=== PATIENT | female | born 1975 | race African-American/Black ===

== ENCOUNTER 2022-04-27 07:43 | Inpatient (IN) | payer BC ==
[2022-04-27] MEDS ORDERED: SODIUM CHLORIDE 0.9% 1,000 ML IV ONE (08:13)
[2022-04-27] MEDS ORDERED: ALPRAZolam 0.25 MG TAB PO PRN (08:34)
[2022-04-27] MEDS ORDERED: NITROGLYCERIN SL TABS 0.4 MG TAB SUBLINGUAL PRN ×2 (08:34→13:05)
[2022-04-27] MEDS ORDERED: ASPIRIN 325 MG TAB PO STA (08:34)
[2022-04-27] MEDS ORDERED: ALPRAZolam 0.5 MG TAB PO PRN (08:34)
[2022-04-27] MEDS ORDERED: ASPIRIN 81 MG ONE (09:03)
[2022-04-27 09:12] LABS: Glucose,Whole Blood 96 mg/dL (70-110)
[2022-04-27] MEDS ORDERED: fentaNYL (PF) 50 MCG/ML 2 ML AMP ONE (11:53)
[2022-04-27] MEDS ORDERED: PRASUGREL 10 MG TAB ONE (12:00)
[2022-04-27] MEDS ORDERED: HEPARIN SODIUM 1,000 UN/ML (10ML VL) ONE (12:00)
[2022-04-27] MEDS ORDERED: HEPARIN SODIUM 1,000 UN/ML (10ML VL) IV ONE ×4 (12:04→12:30)
[2022-04-27] MEDS ORDERED: PRASUGREL 10 MG TAB PO ONE (12:05)
[2022-04-27] MEDS ORDERED: fentaNYL (PF) 50 MCG/1 ML VIAL IVP ONE (12:05)
[2022-04-27] MEDS ORDERED: LIDOCAINE 1% INJ 10MG/ML (20 ML MDV) SQ ONE (12:07)
[2022-04-27] MEDS ORDERED: NITROGLYCERIN 1000MCG/10ML SYRINGE INTRACORON ONE (12:45)
[2022-04-27] MEDS ORDERED: IOPAMIDOL-370 125ML BTL INJ ONE (12:55)
[2022-04-27] MEDS ORDERED: MAG HYDROX/AL HYDROX/SIMETH 30 ML CUP PO PRN (13:05)
[2022-04-27] MEDS ORDERED: ZOLPIDEM 5 MG TAB PO PRN (13:05)
[2022-04-27] MEDS ORDERED: ATROPINE SULFATE 0.1 MG/ML 10ML SYRINGE IV PRN (13:05)
[2022-04-27] MEDS ORDERED: RX INFO: IV CONTRAST WAS GIVEN 1 EACH MISC MISCELLANE PRN (13:05)
--- NOTE | 2022-04-27 13:14 | P.CARDCATH ---
Date of Procedure: 04/27/22 Description of Procedure: PERCUTANEOUS TRANSLUMINAL CORONARY ANGIOPLASTY CLINICAL INFORMATION: The patient is a 46-year-old female with known history of hypertension, hyperlipidemia and diabetes who presented to [facility] with symptoms of chest discomfort and no evidence of myocardial infarction. She had prior stenting of the LAD in 2012 in 2019. She had an abnormal MPI. She underwent cardiac catheterization that showed critical stenosis involving the RCA with moderate to severe stenosis in the stented segment of the LAD. Recommendations were made regarding angioplasty and stenting. The procedure as well as the risks and the complications were discussed with the patient who was in full understanding and agreement. PROCEDURE: Using the guidewire exchange technique the 6-Surinamese sheath in the right femoral artery was exchanged to a new 6-Surinamese sheath. A 6 Surinamese 0.75 AL guiding catheter was introduced into the system. After cannulating the right coronary ostium, a 0.014 BMW J-wire was advanced across the lesion and positioned distally. Following that a 2.5 x 12 Treck balloon was advanced and inflated at 8 atmosphere. Following that a 3.25 x 18 mm Xience candido point stent was deployed. It was dilated at 14. Following that and after removing the balloon at 3.0 x 28 mm Xience candido point stent was positioned in the mid distal segment and dilated to 16 isidra. After the last inflation, after appropriate wait, the balloon and the guidewire were withdrawn back into the guiding catheter. Images were obtained and repeated. Those images reveal stable successful stenting. At that point, the guiding catheter, the balloon, and guidewire were removed. Subsequently a 3.75 EBU guiding catheter was introduced and the left main was cannulated. An Omni Doppler flow wire was positioned in the distal LAD. IFR was measured at 0.94. Subsequently the wire and the guiding catheter were removed. The sheath was removed. Hemostasis was obtained with deployment of an Angio-Seal. There were no immediate complications. The patient was returned to the room in stable condition. Of note, the patient received 12,000 units of heparin as well as a few. The ACT was followed. There was no immediate complications. The patient had no chest discomfort but had EKG changes. RESULTS: Successful stenting of the proximal RCA with reduction of stenosis from 95 % to 0% Successful stenting of the mid-distal RCA with reduction of stenosis from 80% to 0% Nonhemodynamically significant lesion in the proximal stented LAD with IFR of 0.94 RECOMMENDATIONS: The patient will be continued on dual antiplatelet treatment with aspirin and Effient for 6 months in addition to aggressive coronary risks modification. The findings and recommendations were discussed with the patient and the family, they are in full understanding and agreement. Duration of sedation: 55 minutes
[2022-04-27] MEDS ORDERED: SODIUM CHLORIDE 0.9% 1,000 ML in EMPTY BAG 1 BAG IV SCH (13:15)
[2022-04-27 13:38] VITALS: BMI 47.1
[2022-04-27] MEDS: carvediloL 12.5 MG TAB PO SCH (17:17)
[2022-04-27] MEDS: SODIUM CHLORIDE 0.9% 1,000 ML in EMPTY BAG 1 BAG IV SCH ×3 (20:57→21:02)
[2022-04-27] MEDS ORDERED: amLODIPine 5 MG TAB PO SCH (21:00)
[2022-04-27] MEDS ORDERED: ATORVASTATIN 80 MG TAB PO SCH (21:00)
[2022-04-27] MEDS: RANOLAZINE 500 MG TAB.ER.12H PO SCH (21:01)
[2022-04-27] MEDS: PREGABALIN 75 MG CAP PO SCH (21:01)
[2022-04-27] MEDS: DULoxetine HCL 30 MG CAPSULE.DR PO SCH (21:01)
[2022-04-27] MEDS: glipiZIDE 5 MG TAB PO SCH (21:01)
[2022-04-28 05:39] VITALS: RESP 18
[2022-04-28] MEDS: SODIUM CHLORIDE 0.9% 1,000 ML in EMPTY BAG 1 BAG IV SCH (05:40)
[2022-04-28 06:01] LABS: Glucose,Whole Blood 95 mg/dL (70-110)
[2022-04-28] MEDS: carvediloL 12.5 MG TAB PO SCH (06:30)
[2022-04-28] MEDS ORDERED: PANTOPRAZOLE 40 MG TABLET PO SCH (07:30)
[2022-04-28] MEDS: RANOLAZINE 500 MG TAB.ER.12H PO SCH (08:29)
[2022-04-28] MEDS: DULoxetine HCL 30 MG CAPSULE.DR PO SCH (08:29)
[2022-04-28] MEDS: PREGABALIN 75 MG CAP PO SCH (08:29)
[2022-04-28] MEDS: glipiZIDE 5 MG TAB PO SCH (08:29)
[2022-04-28 08:30] LABS: African American GFR (CKD) >90 (>60 ml/min/1.73 sqM); Anion Gap 6 mmol/L; Blood Urea Nitrogen 5 mg/dL (7-17); Calcium 8.8 mg/dL (8.4-10.2); Carbon Dioxide 28 mmol/L (22-30); Chloride 104 mmol/L (98-107); Glucose 89 mg/dL (74-99); Non-African American GFR(CKD) >90 (>60 ml/min/1.73 sqM); Potassium 3.8 mmol/L (3.5-5.1); Sodium 138 mmol/L (137-145)
[2022-04-28] MEDS ORDERED: ASPIRIN 81 MG PO SCH (09:00)
[2022-04-28] MEDS ORDERED: PRASUGREL 10 MG TAB PO SCH (09:00)
[2022-04-28 10:47] VITALS: TEMP 97.5
[2022-04-28 11:57] VITALS: BP 120/80; PULSE 70
--- NOTE | 2022-04-28 21:42 | DS ---
DISCHARGE SUMMARY CHIEF COMPLAINT: Chest pain and coronary artery disease. HISTORY OF PRESENT ILLNESS AND PHYSICAL EXAMINATION: Details of this lady's history and physical can be found in the initial workup. LABORATORY STUDIES: While she was in the hospital, she had laboratory studies, details of which can be found in the laboratory section of her chart. COURSE IN THE HOSPITAL: After admission, she was placed on bedrest and started on intravenous fluids and taken to the director of cardiac cath lab. Two stents were placed. Postoperatively, she did well. It was felt that she could go home on the . She will follow up with Cardiology and my office. FINAL DIAGNOSES: 1. Unstable angina pectoris. 2. Coronary artery disease. 3. Morbid obesity. OPERATIONS: Cardiac catheterization and stent placement. CONSULTATIONS: Cardiology. CONDITION: She is improved. DORYS / THOM: [id number] /
--- NOTE | 2022-04-29 00:18 | HP ---
HISTORY AND PHYSICAL CHIEF COMPLAINT: Chest pain. HISTORY OF PRESENT ILLNESS: This is another admission for this 46-year-old -[place] female who was admitted to [facility] with chest pain. She has a longstanding history of coronary artery disease. Apparently, studies at [facility] indicated that she should undergo cardiac cath and she was transferred to this hospital. REVIEW OF SYSTEMS: At present time, she is still having some discomfort. She is having no difficulty with headaches, shortness of breath, cough, hemoptysis, abdominal pain, nausea, vomiting, etc. Past medical history, family history and personal and social histories can all be found in her prior hospital records and those accompanying her from [facility]. PHYSICAL EXAMINATION: VITAL SIGNS: Blood pressure 132/88 with a pulse of 83 and regular, respirations of 32, and she is afebrile. GENERAL: She appeared to be obese, in no acute distress. SKIN: Dry. HEENT: Head, ears, eyes, nose, mouth and throat are normal. CHEST: Clear. CARDIAC: Normal in sinus rhythm. ABDOMEN: Protuberant, soft, and nontender. EXTREMITIES: Normal. NEUROLOGICAL: She is intact. DIAGNOSES: She is admitted to the hospital with diagnoses, 1. Unstable angina pectoris. 2. Coronary artery disease. PLAN: Consult Cardiology and they are planning on taking her to the laboratory engineer. DORYS / THOM: [id number] /
== END 2022-04-28 14:46 | disposition home or self-care (01) | DRG 247 ==
LOC: 3SCARD 07:59
PROVIDERS: ADMIT Family Medicine; ATTEND Family Medicine
PROC: 027035Z Dilation of Coronary Artery, One Artery with Two Drug-eluting Intraluminal Devices, Percutaneous Approach (ICD-10-PCS; principal; 2022-04-28)
PROC: 4A023N7 Measurement of Cardiac Sampling and Pressure, Left Heart, Percutaneous Approach (ICD-10-PCS; 2022-04-28)
PROC: B2111ZZ Fluoroscopy of Multiple Coronary Arteries using Low Osmolar Contrast (ICD-10-PCS; 2022-04-28)
DX: I25.110 Atherosclerotic heart disease of native coronary artery with unstable angina pectoris (principal); Z68.42 Body mass index [BMI] 45.0-49.9, adult; E11.9 Type 2 diabetes mellitus without complications; E66.01 Morbid (severe) obesity due to excess calories; I10 Essential (primary) hypertension; E78.5 Hyperlipidemia, unspecified; Z28.311 Partially vaccinated for COVID-19; Z79.82 Long term (current) use of aspirin; Z79.84 Long term (current) use of oral hypoglycemic drugs; Z79.899 Other long term (current) drug therapy
CPT/HCPCS: 80048; 83036; 93799; 94760

== ENCOUNTER 2022-08-24 16:14 | Inpatient (IN) | payer BC ==
[2022-08-24 17:07] LABS: Basophils % (A) 0 %; Eosinophils # (A) 0.1 k/uL (0-0.7); Eosinophils % (A) 2 %; HCT 38.8 % (34.0-46.0); HGB 12.8 gm/dL (11.4-16.0); Lymphocytes # (A) 2.1 k/uL (1.0-4.8); Lymphocytes % (A) 31 %; MCV 88.1 fL (80.0-100.0); Mean Platelet Volume 8.1; Monocytes # (A) 0.4 k/uL (0-1.0); Monocytes % (A) 6 %; Neutrophils # (A) 4.1 k/uL (1.3-7.7); Neutrophils % (A) 60 %; Platelet Count 260 k/uL (150-450); RDW 13.2 % (11.5-15.5); WBC 6.9 k/uL (3.8-10.6)
--- NOTE | 2022-08-24 17:10 | XR ---
EXAMINATION TYPE: XR chest 2V DATE OF EXAM: 08/24/2022 5:04 PM COMPARISON: None TECHNIQUE: XR chest 2V Frontal and lateral views of the chest. CLINICAL INDICATION:Female, 46 years old with history of Chest Pain; FINDINGS: Lungs/Pleura: There is no evidence of pleural effusion, focal consolidation, or pneumothorax. Pulmonary vascularity: Unremarkable. Heart/mediastinum: Cardiomediastinal silhouette is unremarkable. Musculoskeletal: No acute osseous pathology. IMPRESSION: No acute cardiopulmonary disease/process.
[2022-08-24 17:30] LABS: ALT 19 U/L (4-34); AST 22 U/L (14-36); African American GFR (CKD) >90 (>60 ml/min/1.73 sqM); Albumin 3.8 g/dL (3.5-5.0); Alkaline Phosphatase 136 U/L (38-126); Anion Gap 7 mmol/L; Blood Urea Nitrogen 8 mg/dL (7-17); Carbon Dioxide 26 mmol/L (22-30); Chloride 104 mmol/L (98-107); Glucose 111 mg/dL (74-99); Magnesium 1.7 mg/dL (1.6-2.3); Non-African American GFR(CKD) >90 (>60 ml/min/1.73 sqM); Potassium 3.7 mmol/L (3.5-5.1); Sodium 137 mmol/L (137-145); Total Bilirubin 0.6 mg/dL (0.2-1.3); Total Protein 7.3 g/dL (6.3-8.2)
[2022-08-24] MEDS ORDERED: NITROGLYCERIN OINT 1 INCH/GM PACKET TOPICAL STA (19:25)
[2022-08-24] MEDS ORDERED: ASPIRIN 81 MG PO STA (19:25)
--- NOTE | 2022-08-24 19:30 | ED ---
General Adult HPI - General Chief complaint: Chest Pain Stated complaint: Chest Pain,Sob Time Seen by Provider: 08/24/22 19:25 Source: patient, RN notes reviewed, old records reviewed Mode of arrival: ambulatory Limitations: no limitations - History of Present Illness Initial comments: This is a 46-year-old female with a past medical history significant for multiple stents in her heart diabetes high blood pressure and high cholesterol. Patient states she quit smoking 2 years ago. Patient comes in today stating that she's been having intermittent chest pain since Monday much worse on Monday through today currently is not as bad as it has been but is still there. Patient states the pain radiates into her arm and into her back. Patient states it also makes her short of breath. Patient states she supposed to be scheduled for a cardiac cath in about a week but she can't stand the pain anymore so she decided come in. Patient denies any fever chills or cough per patient denies lightheadedness or dizziness. Patient denies any syncopal or near syncopal episode. Patient denies any abdominal pain patient denies nausea vomiting or diarrhea. Patient denies any swelling to the legs or calf tenderness - Related Data Home Medications Medication Instructions Recorded Confirmed Aspirin 81 mg PO DAILY 04/27/22 04/27/22 DULoxetine HCL [Cymbalta] 30 mg PO BID 04/27/22 04/27/22 Furosemide [Lasix] 40 mg PO DAILY 04/27/22 04/27/22 Isosorbide Mononitrate ER [Imdur] 30 mg PO HS 04/27/22 04/27/22 Pantoprazole [Protonix] 40 mg PO DAILY 04/27/22 04/27/22 Pregabalin [Lyrica] 150 mg PO BID 04/27/22 04/27/22 Ranolazine [Ranexa] 500 mg PO BID 04/27/22 04/27/22 amLODIPine [Norvasc] 5 mg PO HS 04/27/22 04/27/22 carvediloL [Coreg] 25 mg PO BID-W/MEALS 04/27/22 04/27/22 glipiZIDE 5 mg PO HS 04/27/22 04/27/22 hydrOXYzine pamoate [Vistaril] 50 mg PO HS 04/27/22 04/27/22 tiZANidine [Zanaflex] 2 mg PO HS PRN 04/27/22 04/27/22 Previous Rx's Medication Instructions Recorded Atorvastatin [Lipitor] 80 mg PO HS #30 tab 04/28/22 Nitroglycerin Sl Tabs [Nitrostat] 0.4 mg SUBLINGUAL Q5M PRN #25 tab 04/28/22 Prasugrel [Effient] 10 mg PO DAILY #90 tab 04/28/22 Allergies Allergy/AdvReac Type Severity Reaction Status Date / Time No Known Allergies Allergy Verified 08/24/22 16:21 Review of Systems ROS Statement: Those systems with pertinent positive or pertinent negative responses have been documented in the HPI. ROS Other: All systems not noted in ROS Statement are negative. Past Medical History Past Medical History: Coronary Artery Disease (CAD), Chest Pain / Angina, Diabetes Mellitus, Fibromyalgia, GERD/Reflux, Hyperlipidemia, Hypertension History of Any Multi-Drug Resistant Organisms: None Reported Past Surgical History: Heart Catheterization With Stent, Hysterectomy Additional Past Surgical History / Comment(s): bunion surgery, gastric sleeve 2021 Past Anesthesia/Blood Transfusion Reactions: No Reported Reaction Date of Last Stent Placement:: 04/27/2022 Past Psychological History: Anxiety, Depression, PTSD Smoking Status: Former smoker Past Alcohol Use History: Occasional Past Drug Use History: Marijuana - Past Family History Mother Family Medical History: Coronary Artery Disease (CAD), CVA/TIA, Hyperlipidemia, Hypertension, Myocardial Infarction (MA), Seizure Disorder Father Family Medical History: Coronary Artery Disease (CAD) General Exam - General Exam Comments Initial Comments: GENERAL: Patient is well-developed and well-nourished. Patient is nontoxic and well- hydrated and is in mild distress. ENT: Neck is soft and supple. No significant lymphadenopathy is noted. Oropharynx is clear. Moist mucous membranes. Neck has full range of motion without eliciting any pain. EYES: The sclera were anicteric and conjunctiva were pink and moist. Extraocular movements were intact and pupils were equal round and reactive to light. Eyelids were unremarkable. PULMONARY: Unlabored respirations. Good breath sounds bilaterally. No audible rales rhonchi or wheezing was noted. CARDIOVASCULAR: There is a regular rate and rhythm without any murmurs gallops or rubs. ABDOMEN: Soft and nontender with normal bowel sounds. SKIN: Skin is clear with no lesions or rashes and otherwise unremarkable. NEUROLOGIC: Patient is alert and oriented x3. Cranial nerves II through XII are grossly intact. Motor and sensory are also intact. Normal speech, volume and content. Symmetrical smile. MUSCULOSKELETAL: Normal extremities with adequate strength and full range of motion. No lower extremity swelling or edema. No calf tenderness. LYMPHATICS: No significant lymphadenopathy is noted PSYCHIATRIC: Normal psychiatric evaluation. Limitations: no limitations Course Vital Signs 08/24/22 16:18 Temperature 98.5 F Pulse Rate 80 Respiratory 20 Rate Blood Pressure 117/80 O2 Sat by Pulse 98 Oximetry Medical Decision Making - Medical Decision Making EKG was interpreted by myself shows a sinus rhythm at 84 bpm urine it was on a 51 QRSs 85 Q-T intervals 31 QTC is 422. Patient's EKG shows no ST segment elevation or depression. Patient has inverted T waves in 3 and aVF. Was pt. sent in by a medical professional or institution (, [facility], SKI TECHNICIAN, urgent care, hospital, or detention...) When possible be specific @ -[No] Did you speak to anyone other than the patient for history (EMS, parent, family, police, friend...)? What history was obtained from this source @ -[No] Did you review nursing and triage notes (agree or disagree)? Why? @ -[I reviewed and agree with nursing and triage notes] Were old charts reviewed (outside hosp., previous admission, EMS record, old EKG, old radiological studies, urgent care reports/EKG's, detention records)? Report findings @ -Prior charts prior lab work revealed reviewed Differential Diagnosis (chest pain, altered mental status, abdominal pain women, abdominal pain men, vaginal bleeding, weakness, fever, dyspnea, syncope, headach e, dizziness, GI bleed, back pain, seizure, CVA, palpatations, mental health, musculoskeletal)? @ -Differential Chest Pain: Stable Angina, Unstable Angina, STEMI, NSTEMI Aortic Dissection, Pneumothorax, Musculoskeletal, Esophageal Spasm GERD, Cholecystitis, Pancreatitis, Zoster, this is not meant to be an all-inclusive list. EKG interpreted by me (3pts min.). @ -[As above] X-rays interpreted by me (1pt min.). @ -Chest x-ray shows no acute abnormality CT interpreted by me (1pt min.). @ -[None done] U/S interpreted by me (1pt. min.). @ -[None done] What testing was considered but not performed or refused? (CT, X-rays, U/S, labs)? Why? @ -[None] What meds were considered but not given or refused? Why? @ -[None] Did you discuss the management of the patient with other professionals (professionals i.e. , PA, SKI TECHNICIAN, lab, RT, psych nurse, community mental health social worker, orchestra musician, teacher, chief risk officer, case management coordinator)? Give summary @ -Spoke to [facility] hospitalist who agreed to admit the patient a dmitted the patient I consulted cardiology Was smoking cessation discussed for >3mins.? @ -[No] Was critical care preformed (if so, how long)? @ -[No] Were there social determinants of health that impacted care today? How? (Homelessness, low income, unemployed, alcoholism, drug addiction, transportation, low edu. Level, literacy, decrease access to med. care, alf, rehab)? @ -[No] Was there de-escalation of care discussed even if they declined (Discuss DNR or withdrawal of care, Hospice)? DNR status @ -[No] What co-morbidities impacted this encounter? (DM, HTN, Smoking, COPD, CAD, Cancer, CVA, ARF, Chemo, Hep., AIDS, mental health diagnosis, sleep apnea, morbid obesity)? @ -[None] Was patient admitted / discharged? Hospital course, mention meds given and route, prescriptions, significant lab abnormalities, going to OR and other pertinent info. @ -Patient's chest pain was somewhat relieved with the nitro paste but wasn't completely gone but she had 2 troponins done in the emergency department both of which were negative. Patient was admitted because she was told to be getting a stent less than a week and this point time since she's had pain since Monday thought it best to get in the cardiac catheterization and stenting earlier than later I spoke with the [facility] stay agreed to admit the patient admitted the patient and wrote admitting orders Undiagnosed new problem with uncertain prognosis? @ -[No] Drug Therapy requiring intensive monitoring for toxicity (Heparin, Nitro, Insuli n, Cardizem)? @ -[No] Were any procedures done? @ -[No] Diagnosis/symptom? @ -Chest pain Acute, or Chronic, or Acute on Chronic? @ -Acute Uncomplicated (without systemic symptoms) or Complicated (systemic symptoms)? @ -Complicated Side effects of treatment? @ -[No] Exacerbation, Progression, or Severe Exacerbation? @ -[No] Poses a threat to life or bodily function? How? (Chest pain, USA, MA, pneumonia, PE, COPD, DKA, ARF, appy, cholecystitis, CVA, Diverticulitis, Homicidal, Suicidal, threat to staff... and all critical care pts) @ -Yes this could lead to potential MA and - Lab Data Result diagrams: 08/24/22 16:42 08/24/22 19:57 Lab Results 08/24/22 08/24/22 08/24/22 Range/Units 16:42 16:42 16:42 WBC 6.9 (3.8-10.6) k/uL RBC 4.40 (3.80-5.40) m/uL Hgb 12.8 (11.4-16.0) gm/dL Hct 38.8 (34.0-46.0) % MCV 88.1 (80.0-100.0) fL MCH 29.0 (25.0-35.0) pg MCHC 33.0 (31.0-37.0) g/dL RDW 13.2 (11.5-15.5) % Plt Count 260 (150-450) k/uL MPV 8.1 Neutrophils % 60 % Lymphocytes % 31 % Monocytes % 6 % Eosinophils % 2 % Basophils % 0 % Neutrophils # 4.1 (1.3-7.7) k/uL Lymphocytes # 2.1 (1.0-4.8) k/uL Monocytes # 0.4 (0-1.0) k/uL Eosinophils # 0.1 (0-0.7) k/uL Basophils # 0.0 (0-0.2) k/uL PT (9.0-12.0) sec INR (<1.2) APTT (22.0-30.0) sec Sodium 137 (137-145) mmol/L Potassium 3.7 (3.5-5.1) mmol/L Chloride 104 (98-107) mmol/L Carbon Dioxide 26 (22-30) mmol/L Anion Gap 7 mmol/L BUN 8 (7-17) mg/dL Creatinine 0.69 (0.52-1.04) mg/dL Est GFR (CKD-EPI)AfAm >90 (>60 ml/min/1.73 sqM) Est GFR (CKD-EPI)NonAf >90 (>60 ml/min/1.73 sqM) Glucose 111 H (74-99) mg/dL Calcium 9.0 (8.4-10.2) mg/dL Magnesium 1.7 (1.6-2.3) mg/dL Total Bilirubin 0.6 (0.2-1.3) mg/dL AST 22 (14-36) U/L ALT 19 (4-34) U/L Alkaline Phosphatase 136 H (38-126) U/L Troponin I <0.012 (0.000-0.034) ng/mL NT-Pro-B Natriuret Pep pg/mL Total Protein 7.3 (6.3-8.2) g/dL Albumin 3.8 (3.5-5.0) g/dL 08/24/22 08/24/22 08/24/22 Range/Units 16:42 19:57 19:57 WBC (3.8-10.6) k/uL RBC (3.80-5.40) m/uL Hgb (11.4-16.0) gm/dL Hct (34.0-46.0) % MCV (80.0-100.0) fL MCH (25.0-35.0) pg MCHC (31.0-37.0) g/dL RDW (11.5-15.5) % Plt Count (150-450) k/uL MPV Neutrophils % % Lymphocytes % % Monocytes % % Eosinophils % % Basophils % % Neutrophils # (1.3-7.7) k/uL Lymphocytes # (1.0-4.8) k/uL Monocytes # (0-1.0) k/uL Eosinophils # (0-0.7) k/uL Basophils # (0-0.2) k/uL PT 10.6 (9.0-12.0) sec INR 1.0 (<1.2) APTT 22.0 (22.0-30.0) sec Sodium 138 (137-145) mmol/L Potassium 4.1 (3.5-5.1) mmol/L Chloride 104 (98-107) mmol/L Carbon Dioxide 27 (22-30) mmol/L Anion Gap 7 mmol/L BUN 8 (7-17) mg/dL Creatinine 0.69 (0.52-1.04) mg/dL Est GFR (CKD-EPI)AfAm >90 (>60 ml/min/1.73 sqM) Est GFR (CKD-EPI)NonAf >90 (>60 ml/min/1.73 sqM) Glucose 96 (74-99) mg/dL Calcium 9.4 (8.4-10.2) mg/dL Magnesium 1.8 (1.6-2.3) mg/dL Total Bilirubin 0.9 (0.2-1.3) mg/dL AST 27 (14-36) U/L ALT 21 (4-34) U/L Alkaline Phosphatase 153 H (38-126) U/L Troponin I (0.000-0.034) ng/mL NT-Pro-B Natriuret Pep 29 pg/mL Total Protein 8.4 H (6.3-8.2) g/dL Albumin 4.4 (3.5-5.0) g/dL 08/24/22 Range/Units 19:57 WBC (3.8-10.6) k/uL RBC (3.80-5.40) m/uL Hgb (11.4-16.0) gm/dL Hct (34.0-46.0) % MCV (80.0-100.0) fL MCH (25.0-35.0) pg MCHC (31.0-37.0) g/dL RDW (11.5-15.5) % Plt Count (150-450) k/uL MPV Neutrophils % % Lymphocytes % % Monocytes % % Eosinophils % % Basophils % % Neutrophils # (1.3-7.7) k/uL Lymphocytes # (1.0-4.8) k/uL Monocytes # (0-1.0) k/uL Eosinophils # (0-0.7) k/uL Basophils # (0-0.2) k/uL PT (9.0-12.0) sec INR (<1.2) APTT (22.0-30.0) sec Sodium (137-145) mmol/L Potassium (3.5-5.1) mmol/L Chloride (98-107) mmol/L Carbon Dioxide (22-30) mmol/L Anion Gap mmol/L BUN (7-17) mg/dL Creatinine (0.52-1.04) mg/dL Est GFR (CKD-EPI)AfAm (>60 ml/min/1.73 sqM) Est GFR (CKD-EPI)NonAf (>60 ml/min/1.73 sqM) Glucose (74-99) mg/dL Calcium (8.4-10.2) mg/dL Magnesium (1.6-2.3) mg/dL Total Bilirubin (0.2-1.3) mg/dL AST (14-36) U/L ALT (4-34) U/L Alkaline Phosphatase (38-126) U/L Troponin I <0.012 (0.000-0.034) ng/mL NT-Pro-B Natriuret Pep pg/mL Total Protein (6.3-8.2) g/dL Albumin (3.5-5.0) g/dL Disposition Clinical Impression: Chest pain Disposition: ADMITTED IP TO THIS HOSP Referrals: Andrew Galdamez MD [Primary Care Provider] - 1-2 days Time of Disposition: 21:05
[2022-08-24 20:14] LABS: Prothrombin Time 10.6 sec (9.0-12.0)
[2022-08-24 20:23] LABS: ALT 21 U/L (4-34); AST 27 U/L (14-36); African American GFR (CKD) >90 (>60 ml/min/1.73 sqM); Albumin 4.4 g/dL (3.5-5.0); Alkaline Phosphatase 153 U/L (38-126); Anion Gap 7 mmol/L; Blood Urea Nitrogen 8 mg/dL (7-17); Calcium 9.4 mg/dL (8.4-10.2); Carbon Dioxide 27 mmol/L (22-30); Chloride 104 mmol/L (98-107); Magnesium 1.8 mg/dL (1.6-2.3); Non-African American GFR(CKD) >90 (>60 ml/min/1.73 sqM); Potassium 4.1 mmol/L (3.5-5.1); Sodium 138 mmol/L (137-145); Total Bilirubin 0.9 mg/dL (0.2-1.3); Total Protein 8.4 g/dL (6.3-8.2)
[2022-08-24 20:24] LABS: Glucose 96 mg/dL (74-99)
[2022-08-24] MEDS ORDERED: NITROGLYCERIN SL TABS 0.4 MG TAB SUBLINGUAL PRN (21:05)
[2022-08-24] MEDS: NITROGLYCERIN OINT 1 INCH/GM PACKET TOPICAL SCH (23:12)
[2022-08-25] MEDS: NITROGLYCERIN OINT 1 INCH/GM PACKET TOPICAL SCH (05:46)
[2022-08-25] MEDS ORDERED: DEXTROSE 50% SYRINGE 50 ML IVP PRN ×2 (06:17)
[2022-08-25] MEDS ORDERED: NITROGLYCERIN SL TABS 0.4 MG TAB SUBLINGUAL PRN ×2 (06:18→07:59)
[2022-08-25] MEDS ORDERED: ALBUTEROL NEBULIZED 2.5 MG/3 ML INHALATION PRN (06:18)
[2022-08-25] MEDS ORDERED: tiZANidine 4 MG TAB PO PRN (06:18)
[2022-08-25 06:52] LABS: Glucose,Whole Blood 126 mg/dL (70-110)
[2022-08-25] MEDS: INSULIN ASPART (NovoLOG) 100 UNIT/ML VIAL SQ SCH ×4 (06:53→20:43)
[2022-08-25] MEDS: carvediloL 12.5 MG TAB PO SCH ×2 (06:57→18:22)
[2022-08-25] MEDS: PANTOPRAZOLE 40 MG TABLET PO SCH ×2 (06:57→18:22)
[2022-08-25] MEDS ORDERED: HEPARIN SODIUM,PORCINE 10,000 UNIT in SODIUM CHLORIDE 0.9% 1,000 ML IRRIGATION PRN (07:00)
[2022-08-25] MEDS ORDERED: HEPARIN SODIUM,PORCINE 2,500 UNIT in SODIUM CHLORIDE 0.9% 250 ML IRRIGATION PRN (07:00)
[2022-08-25] MEDS ORDERED: ALPRAZolam 0.25 MG TAB PO PRN (07:59)
[2022-08-25] MEDS ORDERED: ALPRAZolam 0.5 MG TAB PO PRN (07:59)
[2022-08-25] MEDS ORDERED: ATORVASTATIN 80 MG TAB PO STA (07:59)
[2022-08-25] MEDS ORDERED: ASPIRIN 325 MG TAB PO STA (07:59)
[2022-08-25 08:58] LABS: Chol/HDL Ratio 3.05 Ratio; LDL Cholesterol,Calculated 98.9 mg/dL (0.0-131.0); VLDL Calculation 18.78 mg/dL (5.00-40.00)
[2022-08-25] MEDS ORDERED: ASPIRIN 325 MG TAB PO SCH (09:00)
[2022-08-25] MEDS: glipiZIDE 5 MG TAB PO SCH ×2 (09:38→20:52)
[2022-08-25] MEDS: FUROSEMIDE 40 MG TAB PO SCH (09:41)
[2022-08-25] MEDS: CLOPIDOGREL 75 MG TAB PO SCH (10:25)
[2022-08-25] MEDS: FLUoxetine HCL 10 MG CAP PO SCH (10:25)
[2022-08-25] MEDS: RANOLAZINE 500 MG TAB.ER.12H PO SCH ×2 (10:26→20:10)
[2022-08-25] MEDS: PREGABALIN 100 MG CAP PO SCH ×2 (10:27→20:09)
[2022-08-25 11:33] LABS: Glucose,Whole Blood 134 mg/dL (70-110)
--- NOTE | 2022-08-25 13:01 | P.CRDCN ---
History of Present Illness Consult date: 08/25/22 History of present illness: History of present illness: This is a 46-year-old female patient of Dr. Dockery with coronary artery disease status post stent, diabetes mellitus type 2, hypertension, hyperlipidemia, family history of CAD at less than 60 years of age, tobacco use. We have been asked to evaluate the patient for chest pain. Patient was last seen in the [facility] on 07/14/2022 at which time she was complaining of chest discomfort on and off and worsened with physical activity. Physical activity Limited due to fibromyalgia. Patient was scheduled for left heart catheterization and Imdur was increased to 60 mg daily. Patient presents with continued concern for chest pain. Pain radiates to her arm and into her back with shortness of breath. She felt the pain was getting worse and decided to come into the hospital for evaluation. EKG sinus rhythm Chest x-ray: No acute findings CBC is unremarkable. Electrolytes and renal function normal. Troponins n egative 3. Triglycerides 93, cholesterol 175, LDL 98, HDL 57. Magnesium 1.8. Alkaline phosphatase 153 otherwise liver function tests are normal. Home cardiac medications: Amlodipine 5 mg at bedtime, aspirin 81 mg daily, atorvastatin 80 mg at bedtime, Coreg 25 mg twice daily, Plavix 75 mg daily, Lasix 40 mg daily, Imdur 60 mg at bedtime, Nitrostat as needed, Ranexa 500 mg twice daily. Cardiac catheterization 04/2022 revealed critical stenosis involving RCA and moderate to severe stenosis in the stented segment of the LAD. Patient underwent proximal RCA stent, mid distal RCA. Proximal stented LAD with INR of 0.94. Patient also had previous stenting of the LAD in 2011 and 2018. Cardiolite stress test 06/24/2022 revealed nondiagnostic electrocardiographic stress testing. Abnormal myocardial perfusion imaging with reversible anterior, anterior apical and anterior lateral wall with normal gated SPECT images consistent with stress-induced ischemia in the LAD territory. Echocardiogram 04/2022: EF normal, mild TR, mild MR. Review Of Systems: At the time of my evaluation: Constitutional: No fever, no chills. No weakness, fatigue or lethargy. EENT: No headache. No dizziness. Lungs: No shortness of breath, cough, no sputum production. No wheezing. Cardiovascular: No chest pain, no lower extremity edema. No palpitations. No paroxysmal nocturnal dyspnea. No orthopnea. No lightheadedness or dizziness. No syncopal episodes. Abdominal: No abdominal pain. No nausea, vomiting. No diarrhea. No constipation. No bloody or tarry stools. Genitourinary: No dysuria.. No urinary retention. Musculoskeletal: No myalgias. No muscle weakness, no frequent falls. No back pain. No neck pain. Integumentary: No wounds. No rash. No unusual bruising. Neurologic: No aphasia. No facial droop. No change in mentation. No head injury. No headache. Physical examination: Gen: This is a 46-year-old morbidly obese female resting in bed and appears to be comfortable. VS: reviewed HEENT: Head is atraumatic, normocephalic. Pupils equal, round. Sclerae is anicteric. NECK: Supple. No JVD. . LUNGS: Clear to auscultation. No wheezes or rhonchi. No intercostal retractions. HEART: Regular rate and rhythm. 2/6 systolic ejection murmur at the base. ABDOMEN: Soft No tenderness. EXTREMITIES: No pedal edema. No calf tenderness. NEUROLOGICAL: Patient is awake, alert and oriented x3. Assessment: Unstable angina Coronary artery disease Diabetes mellitus type 2 Hypertension Hyperlipidemia Family history of early onset CAD Plan: Continue patient's home cardiac medications Scheduled patient for cardiac catheterization with Dr. Dockery for tomorrow Further recommendations to follow based upon clinical course Thank you kindly for this consultation. Nurse practitioner note has been reviewed, I agree with documented findings and plan of care. Patient was seen and examined. Past Medical History Past Medical History: Coronary Artery Disease (CAD), Chest Pain / Angina, Diabetes Mellitus, Fibromyalgia, GERD/Reflux, Hyperlipidemia, Hypertension History of Any Multi-Drug Resistant Organisms: None Reported Past Surgical History: Heart Catheterization With Stent, Hysterectomy Additional Past Surgical History / Comment(s): bunion surgery, gastric sleeve 2021 Past Anesthesia/Blood Transfusion Reactions: No Reported Reaction Date of Last Stent Placement:: 04/27/2022 Past Psychological History: Anxiety, Depression, PTSD Smoking Status: Former smoker Past Alcohol Use History: Occasional Past Drug Use History: Marijuana - Past Family History Mother Family Medical History: Coronary Artery Disease (CAD), CVA/TIA, Hyperlipidemia, Hypertension, Myocardial Infarction ([place]), Seizure Disorder Father Family Medical History: Coronary Artery Disease (CAD) Medications and Allergies Home Medications Medication Instructions Recorded Confirmed Type Aspirin 81 mg PO DAILY 04/27/22 08/24/22 History Furosemide [Lasix] 40 mg PO DAILY 04/27/22 08/24/22 History Isosorbide Mononitrate ER [Imdur] 30 mg PO HS 04/27/22 08/24/22 History Pantoprazole [Protonix] 40 mg PO BID 04/27/22 08/24/22 History Ranolazine [Ranexa] 500 mg PO BID 04/27/22 08/24/22 History amLODIPine [Norvasc] 5 mg PO HS 04/27/22 08/24/22 History carvediloL [Coreg] 25 mg PO BID-W/MEALS 04/27/22 08/24/22 History glipiZIDE 5 mg PO BID 04/27/22 08/24/22 History tiZANidine [Zanaflex] 2 mg PO HS PRN 04/27/22 08/24/22 History Atorvastatin [Lipitor] 80 mg PO HS #30 tab 04/28/22 08/24/22 Rx Albuterol Inhaler [Ventolin Hfa 2 puff INHALATION RT-QID PRN 08/24/22 08/24/22 History Inhaler] Clopidogrel [Plavix] 75 mg PO DAILY 08/24/22 08/24/22 History FLUoxetine HCL [PROzac] 10 mg PO DIRECTED 08/24/22 08/24/22 History Nitroglycerin Sl Tabs [Nitrostat] 0.4 mg SL Q5M PRN 08/24/22 08/24/22 History Pregabalin [Lyrica] 200 mg PO BID 08/24/22 08/24/22 History hydrOXYzine HCL [Atarax] 50 mg PO HS 08/24/22 08/24/22 History Allergies Allergy/AdvReac Type Severity Reaction Status Date / Time No Known Allergies Allergy Verified 08/24/22 21:43 Physical Exam Vitals: Vital Signs Temp Pulse Pulse Resp BP BP Pulse Ox 08/25/22 06:51 98.2 F 85 18 150/93 97 08/25/22 01:57 98.5 F 85 20 130/85 100 08/24/22 22:12 75 20 158/82 98 08/24/22 16:18 98.5 F 80 20 117/80 98 Intake and Output 08/24/22 08/25/22 08/25/22 22:59 06:59 14:59 Other: Voiding Method Toilet # Voids 1 3 Weight 143.789 kg Results 08/24/22 16:42 08/24/22 19:57 Cardiac Enzymes 08/24/22 08/24/22 08/24/22 Range/Units 16:42 16:42 19:57 AST 22 27 (14-36) U/L Troponin I <0.012 (0.000-0.034) ng/mL 08/24/22 08/24/22 08/25/22 Range/Units 19:57 23:53 05:03 AST (14-36) U/L Troponin I <0.012 <0.012 <0.012 (0.000-0.034) ng/mL Coagulation 08/24/22 Range/Units 19:57 PT 10.6 (9.0-12.0) sec APTT 22.0 (22.0-30.0) sec CBC 08/24/22 Range/Units 16:42 WBC 6.9 (3.8-10.6) k/uL RBC 4.40 (3.80-5.40) m/uL Hgb 12.8 (11.4-16.0) gm/dL Hct 38.8 (34.0-46.0) % Plt Count 260 (150-450) k/uL Comprehensive Metabolic Panel 08/24/22 08/24/22 Range/Units 16:42 19:57 Sodium 137 138 (137-145) mmol/L Potassium 3.7 4.1 (3.5-5.1) mmol/L Chloride 104 104 (98-107) mmol/L Carbon Dioxide 26 27 (22-30) mmol/L BUN 8 8 (7-17) mg/dL Creatinine 0.69 0.69 (0.52-1.04) mg/dL Glucose 111 H 96 (74-99) mg/dL Calcium 9.0 9.4 (8.4-10.2) mg/dL AST 22 27 (14-36) U/L ALT 19 21 (4-34) U/L Alkaline Phosphatase 136 H 153 H (38-126) U/L Total Protein 7.3 8.4 H (6.3-8.2) g/dL Albumin 3.8 4.4 (3.5-5.0) g/dL Current Medications Generic Name Dose Route Start Last Admin Trade Name Freq PRN Reason Stop Dose Admin Albuterol Sulfate 2.5 mg 08/25/22 06:18 Albuterol Nebulized 2.5 Mg/3 Ml INHALATION RT-QID PRN Shortness Of Breath Alprazolam 0.25 mg 08/25/22 07:59 Alprazolam 0.25 Mg Tab PO Q6HR PRN Mild Anxiety Alprazolam 0.5 mg 08/25/22 07:59 Alprazolam 0.5 Mg Tab PO Q6HR PRN Moderate Anxiety Amlodipine Besylate 5 mg 08/25/22 21:00 Amlodipine 5 Mg Tab PO HS [facility] Aspirin 81 mg 08/26/22 09:00 Aspirin 81 Mg PO DAILY [facility] Atorvastatin Calcium 80 mg 08/25/22 21:00 Atorvastatin 80 Mg Tab PO HS [facility] Carvedilol 25 mg 08/25/22 07:30 08/25/22 06:57 Carvedilol 12.5 Mg Tab PO 25 mg BID-W/MEALS [facility] Administration Clopidogrel Bisulfate 75 mg 08/25/22 09:00 Clopidogrel 75 Mg Tab PO DAILY [facility] Dextrose/Water 25 ml 08/25/22 06:17 Dextrose 50% Syringe 50 Ml IVP PER PROTOCOL PRN Hypoglycemia Protocol Dextrose/Water 50 ml 08/25/22 06:17 Dextrose 50% Syringe 50 Ml IVP PER PROTOCOL PRN Hypoglycemia Protocol Fluoxetine HCl 10 mg 08/25/22 09:00 Fluoxetine Hcl 10 Mg Cap PO DAILY [facility] Furosemide 40 mg 08/25/22 09:00 Furosemide 40 Mg Tab PO DAILY [facility] Glipizide 5 mg 08/25/22 09:00 Glipizide 5 Mg Tab PO BID [facility] Hydroxyzine HCl 50 mg 08/25/22 21:00 Hydroxyzine Hcl 25 Mg Tab PO HS [facility] Heparin Sodium (Porcine) 10, 1,001 mls @ 999 mls/hr 08/25/22 07:00 000 unit/ Sodium Chloride IRRIGATION 08/25/22 23:00 ONCE PRN INTRA-OP Heparin Sodium (Porcine) 2,500 250.5 mls @ 250 mls/hr 08/25/22 07:00 unit/ Sodium Chloride IRRIGATION 08/25/22 23:00 ONCE PRN INTRA-OP Insulin Aspart 0 unit 08/25/22 07:30 08/25/22 06:53 Insulin Aspart (Novolog) 100 Unit/Ml Vial SQ Not Given ACHS [facility] Protocol Isosorbide Mononitrate 30 mg 08/25/22 21:00 Isosorbide Mononitrate Er 30 Mg Tab.Er.24h PO HS [facility] Nitroglycerin 0.4 mg 08/25/22 07:59 Nitroglycerin Sl Tabs 0.4 Mg Tab SUBLINGUAL Q5M PRN Chest Pain Pantoprazole Sodium 40 mg 08/25/22 07:30 08/25/22 06:57 Pantoprazole 40 Mg Tablet PO 40 mg AC-BID [facility] Administration Pregabalin 200 mg 08/25/22 09:00 Pregabalin 100 Mg Cap PO BID [facility] Ranolazine 500 mg 08/25/22 09:00 Ranolazine 500 Mg Tab.Er.12h PO BID [facility] Tizanidine HCl 2 mg 08/25/22 06:18 Tizanidine 4 Mg Tab PO HS PRN Muscle Pain Intake and Output 08/24/22 08/25/22 08/25/22 22:59 06:59 14:59 Other: Voiding Method Toilet # Voids 1 3 Weight 143.789 kg 08/24/22 16:42 08/24/22 19:57
--- NOTE | 2022-08-25 14:39 | HP ---
HISTORY AND PHYSICAL This is a combined history and physical and discharge summary. CHIEF COMPLAINT: Chest pain. HISTORY OF PRESENT ILLNESS: This is a 46-year-old woman with past medical history of multiple medical problems including multiple cardiac stents, admitted with chest pain. The pain is mainly on the left side which was recurring on several days. The initial cardiac workup was negative. Cardiology is planning possible cardiac catheterization. There is no history of any fever, rigors, or chills at this time. PAST MEDICAL HISTORY: Reviewed CAD, multiple stents, multiple cardiac catheterizations, rest of the history and rest of the chart is also reviewed. HOME MEDICATIONS: Zanaflex, dose and rest of medications are reviewed. ALLERGIES: None. FAMILY HISTORY: History of CAD. SOCIAL HISTORY: Previous history of smoking. Occasional alcohol intake. REVIEW OF SYSTEMS: A 14-point review is negative except as mentioned earlier. PHYSICAL EXAMINATION: VITAL SIGNS: Pulse is 85, blood pressure 150/93, respirations 18. HEENT: Conjunctivae normal. NECK: No jugular venous distention. CARDIOVASCULAR: S1, S2 muffled. RESPIRATION: Diminished at the bases. ABDOMEN: Soft, obese. LEGS: No edema. No swelling. NERVOUS SYSTEM: No focal deficit. SKIN: No ulcer, rash, bleeding. JOINTS: No active deforming arthropathy. LABORATORY DATA: Reviewed. EKG reviewed. ASSESSMENT: 1. Chest pain, possible unstable angina for possible cardiac consultation. 2. History of CAD, multiple stents. 3. Diabetes mellitus, type 2. 4. Fibromyalgia. 5. Hypertension. 6. Hyperlipidemia. RECOMMENDATIONS AND DISCUSSION: This 46-year-old woman presented with multiple complex medical issues, we will monitor the patient closely. Cardiology evaluation, possible cardiac catheterization. If the patient is stable and after cardiology clearance, the patient will be discharged with recommendation to resume the home medications or the previous medications, see orders for details. The patient is already on Imdur. Please refer to the medication reconciliation sheet for list of medications. MMODL / IJN: [id number] /
[2022-08-25 15:56] LABS: Basophils % (A) 0 %; Eosinophils # (A) 0.1 k/uL (0-0.7); Eosinophils % (A) 2 %; HCT 36.8 % (34.0-46.0); HGB 11.8 gm/dL (11.4-16.0); Lymphocytes # (A) 2.2 k/uL (1.0-4.8); Lymphocytes % (A) 32 %; MCH 28.7 pg (25.0-35.0); MCV 89.9 fL (80.0-100.0); Mean Platelet Volume 9.6; Monocytes # (A) 0.5 k/uL (0-1.0); Monocytes % (A) 7 %; Neutrophils % (A) 58 %; Platelet Count 224 k/uL (150-450); RBC 4.09 m/uL (3.80-5.40); RDW 13.4 % (11.5-15.5)
[2022-08-25 17:39] LABS: Glucose,Whole Blood 111 mg/dL (70-110)
[2022-08-25 20:22] LABS: Glucose,Whole Blood 134 mg/dL (70-110)
[2022-08-25] MEDS ORDERED: hydrOXYzine HCL 25 MG TAB PO SCH (21:00)
[2022-08-25] MEDS ORDERED: ISOSORBIDE MONONITRATE ER 30 MG TAB.ER.24H PO SCH (21:00)
[2022-08-25] MEDS ORDERED: amLODIPine 5 MG TAB PO SCH (21:00)
[2022-08-25] MEDS ORDERED: ATORVASTATIN 80 MG TAB PO SCH (21:00)
[2022-08-26 06:17] LABS: Glucose,Whole Blood 100 mg/dL (70-110)
[2022-08-26] MEDS: INSULIN ASPART (NovoLOG) 100 UNIT/ML VIAL SQ SCH ×3 (06:18→17:39)
[2022-08-26] MEDS: PANTOPRAZOLE 40 MG TABLET PO SCH (06:35)
[2022-08-26] MEDS: carvediloL 12.5 MG TAB PO SCH (06:35)
[2022-08-26] MEDS: glipiZIDE 5 MG TAB PO SCH (07:47)
[2022-08-26] MEDS: FUROSEMIDE 40 MG TAB PO SCH (07:47)
[2022-08-26] MEDS: PREGABALIN 100 MG CAP PO SCH (07:56)
[2022-08-26] MEDS: FLUoxetine HCL 10 MG CAP PO SCH (07:56)
[2022-08-26] MEDS: RANOLAZINE 500 MG TAB.ER.12H PO SCH (07:56)
[2022-08-26] MEDS: CLOPIDOGREL 75 MG TAB PO SCH (07:56)
[2022-08-26] MEDS ORDERED: ASPIRIN 81 MG PO SCH (09:00)
[2022-08-26] MEDS ORDERED: SODIUM CHLORIDE 0.9% 500 ML 500 ML IV ONE (10:08)
[2022-08-26] MEDS ORDERED: fentaNYL (PF) 50 MCG/ML 2 ML AMP ONE (10:14)
[2022-08-26] MEDS ORDERED: LIDOCAINE 1% INJ 10MG/ML (20 ML MDV) ONE (10:14)
[2022-08-26] MEDS ORDERED: HEPARIN SODIUM 1,000 UN/ML (10ML VL) ONE (10:14)
[2022-08-26] MEDS ORDERED: fentaNYL (PF) 50 MCG/ML 2 ML AMP IVP ONE (10:45)
[2022-08-26] MEDS ORDERED: LIDOCAINE 1% INJ 10MG/ML (20 ML MDV) SQ ONE (10:46)
[2022-08-26] MEDS ORDERED: IOPAMIDOL-370 100ML BTL INJ ONE (11:01)
[2022-08-26] MEDS ORDERED: RX INFO: IV CONTRAST WAS GIVEN 1 EACH MISC MISCELLANE PRN (11:10)
[2022-08-26] MEDS ORDERED: SODIUM CHLORIDE 0.9% 1,000 ML IV SCH (11:15)
--- NOTE | 2022-08-26 11:17 | P.CARDCATH ---
Date of Procedure: 08/26/22 Description of Procedure: Cardiac Catheterization: The patient is a 46-year-old female with a known history of CAD status post LAD stenting and most recently stenting of the RCA in March who presented with symptoms of chest discomfort and no evidence of myocardial infarction. Recommendations were made regarding cardiac catheterization, the risks and the complications were discussed with the patient who is in full understanding and agreement. Procedure Description: Patient was brought to cath lab radiological technologist in fasting semi-sedated state after receiving Fentanyl and Benadryl achieiving moderate conscious sedated state. Using Xylocaine Anesthesia and Seldinger technique, and a micropuncture catheter, a 6-Mont[place]grin sheath was introduced in the right femoral artery . Subsequently, selective coronary angiography was performed using a 6-[place]grin 4 bend Marla catheter. Multiple views of the coronary artery including hemiaxial views were obtained. The and right Marla catheter was used to cross the aortic valve and LVEDP was calculated. Following that, catheter and sheath were removed. Hemostasis was obtained with compression of the right groin . There was inability to advance an Angio-Seal. There was no immediate complication. Patient was returned to room in stable condition. Findings: Left main: This is a large size vessel, bifurcating into LAD and left circumflex, the left main has no obstructive disease LAD: This is a large size vessel, reaching to the apex, giving rise to a large diagonal branch the stented segment in the proximal LAD is patent has a tubular 40% in-stent restenosis with no progression compared to March. Left circumflex: This is a nondominant vessel giving rise to 2 large obtuse marginal branch that had no evidence of high-grade stenosis RCA: This is a dominant vessel, large in caliber, bifurcating into PDA and PLV. The proximal stent of the RCA is patent with no in-stent restenosis the distal stent is patent with no in-stent restenosis there is a 40-50% tubular plaque between the 2 stents with no progression compared to March Left Ventriculogram: Not performed Hemodynamics: There was no gradient across the aortic valve , LVEDP was 10-12 mmHg Conclusion: 1. Patent stents in the LAD with mild to moderate in-stent restenosis, no progression since March. Patient had a normal IFR at that time 2. Patent stent in the RCA with mild disease in the mid segment 3. No obstructive disease in the left circumflex 4. Right dominance Recommendations: The patient will continue on present therapy. Her symptoms appears to be noncardiac, she will continue on aggressive coronary risk modification. The findings and the recommendations were discussed with the patient and the family and they were in full understanding and agreement. Duration of sedation is 22 minutes.
[2022-08-26 12:12] LABS: Glucose,Whole Blood 113 mg/dL (70-110)
[2022-08-26 15:18] VITALS: TEMP 98.2
[2022-08-26 15:23] VITALS: BP 103/67; PULSE 77; RESP 16
[2022-08-26 17:22] LABS: Glucose,Whole Blood 131 mg/dL (70-110)
--- NOTE | 2022-08-27 10:23 | P.DS ---
Providers Date of admission: 08/24/22 21:05 Expected date of discharge: 08/26/22 Attending physician: Wiliam Gil Consults: 08/24/22 21:05 Consult Physician Urgent Consulting Provider: [facility] Consult Reason/Comments: Chest pain Do you want consulting provider notified?: Yes Primary care physician: Andrew Galdamez [facility] Course: Final diagnosis Chest pain, possible unstable angina status post cardiac catheterization revealing patent stents History of coronary artery disease with multiple stents Diabetes mellitus, type II Morbid obesity with a BMI of 46.8 Fibromyalgia Hypertension Hyperlipidemia GI prophylaxis DVT prophylaxis Full code Discharge disposition Patient is being discharged in a stable condition with guarded prognosis to home. Patient will follow-up with Dr. Galdamez in the outpatient setting upon discharge. Patient is to continue with current medication regimen and close outpatient follow-up with cardiology as scheduled. Total time taken is greater than 35 minutes. Hospital course This is a 46-year-old female who was recently admitted with chest pain with significant ACS history with previous stenting multiple times. Patient was scheduled for outpatient procedure although had worsening symptoms and came to the ER. Patient was seen and evaluated by cardiology underwent cardiac catheterization revealing patent stents. Mild to moderate disease with no plans of restenting or intervention at this time. Recommending maximizing medical management and close outpatient follow-up. Patient has been cleared by consultation. Please refer to cardiology no for further HPI. Currently no reports of chest pain, shortness of breath, or palpitations. Patient is afebrile. No reports of nausea or vomiting and patient is tolerating diet. Patient will be discharged home later today. Guarded prognosis Physical exam: Gen: This is a 46 old female who is awake, alert and oriented 3, well- developed, well-nourished, morbidly obese HEENT: Head is atraumatic, normocephalic. Pupils equal, round. Sclerae is anicteric. NECK: Supple. No JVD. No lymphadenopathy. No thyromegaly. LUNGS: Clear to auscultation. No wheezes or rhonchi. No intercostal retractions. HEART: Regular rate and rhythm. No murmur. ABDOMEN: Soft. Obese Bowel sounds are present. No masses. No tenderness. EXTREMITIES: No pedal edema. No calf tenderness. NEUROLOGICAL: Patient is awake, alert and oriented x3. Cranial nerves 2 through 12 are grossly intact. Please refer to medication reconciliation sheet for a list of medications. The impression and plan of care has been dictated by Alyson Jaime, Nurse Practitioner as directed. Dr. Jeffery MD I have performed a history and examination and MDM of this patient, discussed the same with the dictator, and agree with the dictator's assessment and plan as written ,documented as a scribe. Based on total visit time, I have performed more than 50% of the visit. Patient Condition at Discharge: Stable Plan - Discharge Summary New Discharge Prescriptions: Continue glipiZIDE 5 mg PO BID Aspirin 81 mg PO DAILY Atorvastatin [Lipitor] 80 mg PO HS #30 tab Albuterol Inhaler [Ventolin Hfa Inhaler] 2 puff INHALATION RT-QID PRN PRN Reason: Shortness Of Breath tiZANidine [Zanaflex] 2 mg PO HS PRN PRN Reason: Muscle Pain Ranolazine [Ranexa] 500 mg PO BID Pantoprazole [Protonix] 40 mg PO BID amLODIPine [Norvasc] 5 mg PO HS Furosemide [Lasix] 40 mg PO DAILY carvediloL [Coreg] 25 mg PO BID-W/MEALS Isosorbide Mononitrate ER [Imdur] 30 mg PO HS Clopidogrel [Plavix] 75 mg PO DAILY FLUoxetine HCL [PROzac] 10 mg PO DIRECTED hydrOXYzine HCL [Atarax] 50 mg PO HS Pregabalin [Lyrica] 200 mg PO BID Nitroglycerin Sl Tabs [Nitrostat] 0.4 mg SL Q5M PRN PRN Reason: Chest Pain Discharge Medication List Aspirin 81 mg PO DAILY 04/27/22 [History] Furosemide [Lasix] 40 mg PO DAILY 04/27/22 [History] Isosorbide Mononitrate ER [Imdur] 30 mg PO HS 04/27/22 [History] Pantoprazole [Protonix] 40 mg PO BID 04/27/22 [History] Ranolazine [Ranexa] 500 mg PO BID 04/27/22 [History] amLODIPine [Norvasc] 5 mg PO HS 04/27/22 [History] carvediloL [Coreg] 25 mg PO BID-W/MEALS 04/27/22 [History] glipiZIDE 5 mg PO BID 04/27/22 [History] tiZANidine [Zanaflex] 2 mg PO HS PRN 04/27/22 [History] Atorvastatin [Lipitor] 80 mg PO HS #30 tab 04/28/22 [Rx] Albuterol Inhaler [Ventolin Hfa Inhaler] 2 puff INHALATION RT-QID PRN 08/24/22 [History] Clopidogrel [Plavix] 75 mg PO DAILY 08/24/22 [History] FLUoxetine HCL [PROzac] 10 mg PO DIRECTED 08/24/22 [History] Nitroglycerin Sl Tabs [Nitrostat] 0.4 mg SL Q5M PRN 08/24/22 [History] Pregabalin [Lyrica] 200 mg PO BID 08/24/22 [History] hydrOXYzine HCL [Atarax] 50 mg PO HS 08/24/22 [History] Follow up Appointment(s)/Referral(s): Luis Dockery MD [STAFF PHYSICIAN] - 09/05/22 9:00 am (Appointment will be with LEONILA Coy) Andrew Galdamez MD [Primary Care Provider] - 1-2 days Patient Instructions/Handouts: *Surgery [facility] - After Heart Catheterization - [employer] Instructions, Chest Pain (DC) Activity/Diet/Wound Care/Special Instructions: Activity Limited until follow-up Follow-up with primary care provider on discharge Follow-up cardiology outpatient Continue cardiac medications Continue diabetic heart healthy diet Discharge Disposition: HOME SELF-CARE Plan of Treatment: Potentially see your weight loss surgeon if you still have concerns!
== END 2022-08-26 17:53 | disposition home or self-care (01) | DRG 287 ==
LOC: EC 16:14 → 6NMEDSUR 21:05
PROVIDERS: ADMIT Hospitalist; ATTEND Hospitalist
PROC: B2111ZZ Fluoroscopy of Multiple Coronary Arteries using Low Osmolar Contrast (ICD-10-PCS; 2022-08-26)
PROC: 4A023N7 Measurement of Cardiac Sampling and Pressure, Left Heart, Percutaneous Approach (ICD-10-PCS; principal; 2022-08-26 07:30)
DX: I25.110 Atherosclerotic heart disease of native coronary artery with unstable angina pectoris (principal); Z68.42 Body mass index [BMI] 45.0-49.9, adult; T82.855A Stenosis of coronary artery stent, initial encounter; F43.10 Post-traumatic stress disorder, unspecified; I10 Essential (primary) hypertension; K21.9 Gastro-esophageal reflux disease without esophagitis; E78.00 Pure hypercholesterolemia, unspecified; E66.01 Morbid (severe) obesity due to excess calories; G40.909 Epilepsy, unspecified, not intractable, without status epilepticus; M79.7 Fibromyalgia; Z79.02 Long term (current) use of antithrombotics/antiplatelets; Z79.82 Long term (current) use of aspirin; Z79.84 Long term (current) use of oral hypoglycemic drugs; Z79.899 Other long term (current) drug therapy; Z82.0 Family history of epilepsy and other diseases of the nervous system; Z82.49 Family history of ischemic heart disease and other diseases of the circulatory system; Z90.710 Acquired absence of both cervix and uterus; Z95.5 Presence of coronary angioplasty implant and graft; Z98.84 Bariatric surgery status; Z87.891 Personal history of nicotine dependence
CPT/HCPCS: 36415; 71046; 80053; 80061; 83036; 83735; 83880; 84484; 85025; 85610; 85730; 93005; 93458; 94760; 99285

== ENCOUNTER → 2024-05-22 | Outpatient (CLI) | payer BC ==
--- NOTE | 2024-05-22 16:48 | MM ---
Reason for Exam: Screening (asymptomatic). Last mammogram was performed 2 year(s) and 2 month(s) ago. Patient History: Menarche at age 13. Patient has no children. Hysterectomy at age 44. Patient used Hormonal Contraceptives for 1 year. Risk Values: Renee 5 year model risk: 1.0%. NCI Lifetime model risk: 10.2%. Prior Study Comparison: 03/14/2018 Bilateral MG diagnostic mammo w CAD [facility] - 2, Unknown. 02/04/2020 Bilateral MG screening mammo w CAD - 2, Unknown. 04/05/2022 Bilateral MG 3D diag mammo w/cad [facility], [facility]. Tissue Density: There are scattered areas of fibroglandular density. Findings: Analyzed By CAD. There multiple bilateral palpable markers. However, no definite suspicious underlying abnormality is seen. Small area of low density nodularity central outer right cc view is unchanged. Scattered benign oil cyst calcifications are noted. Some benign dermal calcifications near the inframammary fold redemonstrated. There is no suspicious group of microcalcifications or new suspicious mass in either breast. Overall Assessment: Benign, BI-RAD 2 Management: Screening Mammogram of both breasts in 1 year. Further clinical management of any suspicious palpable abnormality. If any enlarging palpable area is clinically detected, targeted ultrasound can be ordered. These results should not preclude additional follow-up of suspicious palpable abnormalities. Note on Renee scores and lifetime risk: 1. A Renee score greater than 3% is considered moderate risk. If this is the case, consider specialist referral to assess eligibility for a risk reducing agent. 2. If overall lifetime risk for the development of breast cancer is 20% or higher, the patient may qualify for future screening with alternating mammogram and breast MRI. [facility], , 05/22/2024 4:45 PM. Electronically signed and approved by: Basim Priest M.D. Radiologist
== END | disposition home or self-care (01) ==
LOC: RADMAMWWP 16:06
PROVIDERS: ATTEND Internal Medicine Geriatric Medicine
DX: Z12.31 Encounter for screening mammogram for malignant neoplasm of breast (principal); R92.323 Mammographic fibroglandular density, bilateral breasts; R92.1 Mammographic calcification found on diagnostic imaging of breast; Z92.0 Personal history of contraception
CPT/HCPCS: 77063; 77067